=== PATIENT | female | born 1980 | race Caucasian/White ===

== ENCOUNTER → 2018-01-12 | Outpatient (CLI) | payer OTHER ==
--- NOTE | 2018-01-13 08:28 | KCIC ---
EXAM: MRI right shoulder DATE: 01/12/2018 5:00 PM COMPARISON: Radiographs 12/30/2017 INDICATION: Right shoulder pain. Recurrent dislocations. Prior labral repair. TECHNIQUE: Multiplanar multisequence MR imaging of the right shoulder was performed without IV contrast. FINDINGS: No significant right glenohumeral joint effusion. Trace subacromial-subdeltoid bursal fluid likely bursitis. Mild AC joint degenerative change with tiny inferior projecting osteophytes, capsular edema and mild edema at the interface. Type I acromion. No os acromiale Focal susceptibility artifact is seen within the anterior fibers of infraspinatus tendon possibly from prior rotator cuff repair. There is moderate edema distal to the susceptibility artifact suggesting tendinosis or tear with associated interspersed scar tissue, measuring 8 mm in AP dimension. Otherwise no definite rotator cuff tear is seen. Mild increased signal within the distal supraspinatus tendon likely mild tendinosis. Rotator cuff muscle signal and bulk is normal. No fatty atrophy. Intra-articular long head biceps tendon is normal in signal and morphology. The extra-articular long head biceps tendon is seen within the bicipital groove. Susceptibility artifact is seen within the superior glenoid from prior labral repair. Increased signal seen within the biceps tendon anchor extending posteriorly to the 10:30 position, SLAP tear (series 5, image 10). In addition, the anterior inferior labral ligamentous complex appears to be medially displaced without significant labral tissue on the glenoid rim likely ALPSA type labral tear. Cystic changes seen within the greater tuberosity posteriorly. No evidence of fracture or AVN. Survey of articular cartilage within normal limits. IMPRESSION: 1. Changes of prior superior labral repair with associated susceptibility artifact. There is now increased labral signal extending posteriorly to the 10:30 position consistent with short segment SLAP tear 2. Anterior inferior labral ligamentous complex is medially displaced, ALPSA type tear 3. Susceptibility artifact within the anterior fibers of infraspinatus tendon likely from prior rotator cuff repair. Distally within the infraspinous tendon there is edema at the attachment, possibly tendinosis or tear with associated interspersed scar tissue. Electronically signed by: Kulwinder Babcock MD (01/13/2018 8:25 AM) [id number]
== END | disposition home or self-care (01) ==
LOC: KCIC MRI 16:52
PROVIDERS: ATTEND Orthopaedic Surgery Sports Medicine
DX: S43.431A Superior glenoid labrum lesion of right shoulder, initial encounter (principal); M24.411 Recurrent dislocation, right shoulder; X58.XXXA Exposure to other specified factors, initial encounter; Y93.89 Activity, other specified; Y92.89 Other specified places as the place of occurrence of the external cause; Y99.8 Other external cause status
CPT/HCPCS: 73221